=== PATIENT | male | born 1980 | race Caucasian/White ===

== ENCOUNTER 2016-05-15 04:07 | Emergency (ER) | payer SELFPAY ==
[~2016-05-15] VITALS: Ht 162.6 cm; Wt 75.5 kg
[2016-05-15 04:14] VITALS: Ht 162.6 cm; Wt 75.5 kg
[2016-05-15] MEDS ORDERED: SODI126M NASAL (04:41)
[2016-05-15] MEDS ORDERED: ACET500C5 PO (04:41)
--- NOTE | 2016-05-15 04:49 | ERD ---
ER Documentation Chief Complaint Date/Time DATE: 05/15/16 TIME: 04:43 Chief Complaint chest congestion,reported to have flu,took Mucinex at home HPI 35-year-old male complaining of chest pressure since 7 PM last night. Patient describes this as feeling like "elephant is sitting on my chest". He has shortness of breath associated with the pain. Patient reports cough and runny nose 3 days, along with sore throat and left ear pain. Denies fever or chills. Denies abdominal pain, vomiting, or diarrhea. Denies history of asthma. ROS All systems reviewed and are negative except as per history of present illness. Medications Home Meds Active Scripts Sodium Chloride (Saline Nasal Mist) 126 Ml Mist, 2 SPRAY NASAL Q2H Y for NASAL CONGESTION, #1 BOTTLE Prov:ISIDORO BALTAZAR. ROUGH CARPENTER 05/15/16 Acetaminophen* (Tylophen*) 500 Mg Capsule, 1 CAP PO Q6H Y for PAIN AND OR ELEVATED TEMP, #20 CAP Prov:ISIDORO BALTAZAR. ROUGH CARPENTER 05/15/16 Allergies Allergies: Coded Allergies: No Known Allergy (Unverified , 05/15/16) PMhx/Soc Medical and Surgical Hx: pt denies Medical Hx, pt denies Surgical Hx History of Surgery: No Anesthesia Reaction: No Hx Neurological Disorder: No Hx Respiratory Disorders: No Hx Cardiac Disorders: No Hx Psychiatric Problems: No Hx Miscellaneous Medical Probl: No Hx Alcohol Use: Yes (socially) Hx Substance Use: Yes (occassional marijuana use) Hx Tobacco Use: Yes Smoking Status: Light tobacco smoker Physical Exam Vitals Vital Signs Date Time Temp Pulse Resp B/P Pulse Ox O2 Delivery O2 Flow Rate FiO2 05/15/16 04:14 98.7 81 18 132/72 97 Physical Exam General impression: Well-developed, well-nourished. Alert, oriented, in no acute distress Head: Normocephalic, atraumatic. Eyes: PERRL, EOM normal. Conjunctiva not injected. ENT: External canals clear. TM's pearly najera, left TM slightly bulging. Nasal mucosa erythematous and swollen. Oral mucosa are normal. Oropharynx mildly erythematous, no pharyngeal swelling or exudates. Neck: Supple, nontender. No lymphanopathy. No nuchal rigidity. Respiration: Normal respiratory effort. Lungs clear to auscultate bilaterally. No wheezes, rales or rhonchi. Cardiovascular: Regular rate and rhythm. No murmurs or extra heart sounds. Abdomen: Abdomen normal to inspection. Nontender. No masses or organomegaly. Bowel sounds normal. Neuro: Mental status normal, speech normal. Skin: Normal turgor. No rash or lesions. Psych: Normal mood and affect. Procedures/MDM EKG: Normal sinus rhythm, normal axis. No ST segment elevation or depression. No ectopic beats. No QT prolongation. No other EKG abnormalities. EKG read by Dr. Levy. Low suspicion for OK. Patient is afebrile, in no respiratory distress. Lungs are clear to auscultate. I doubt that patient has pneumonia or bronchitis. Likely patient's symptoms are result of viral upper respiratory infection. Low suspicion for aortic dissection, pneumothorax or PE. Patient appears well, stable for discharge and outpatient management. Medical decision making shared with patient and family. Education provided to patient and family. Patient and family expressed understanding of the plan. Medications on discharge: Tylenol, saline nasal spray. Follow-up: Primary care provider in 2-3 days or return to ED if worse. Departure Diagnosis: Primary Impression: URI (upper respiratory infection) URI type: acute nasopharyngitis (common cold) Qualified Code: J00 - Acute nasopharyngitis Condition: Good Patient Instructions: Adult Self-Care for Colds Referrals: [facility] YOU HAVE RECEIVED A MEDICAL SCREENING EXAM AND THE RESULTS INDICATE THAT YOU DO NOT HAVE A CONDITION THAT REQUIRES URGENT TREATMENT IN THE EMERGENCY DEPARTMENT. FURTHER EVALUATION AND TREATMENT OF YOUR CONDITION CAN WAIT UNTIL YOU ARE SEEN IN YOUR DOCTORS OFFICE WITHIN THE NEXT 1-2 DAYS. IT IS YOUR RESPONSIBILITY TO MAKE AN APPOINTMENT FOR [facility]. IF YOU HAVE A PRIMARY DOCTOR --you should call your primary doctor and schedule an appointment IF YOU DO NOT HAVE A PRIMARY DOCTOR YOU CAN CALL OUR PHYSICIAN REFERRAL HOTLINE AT IF YOU CAN NOT AFFORD TO SEE A PHYSICIAN YOU CAN CHOSE FROM THE FOLLOWING [facility] [address] [facility] [address] [facility] [address] [facility] [address] [facility]. [facility] [address] [facility]. [facility] [address] Additional Instructions: Call your primary care doctor TOMORROW for an appointment during the next 2-3 days.See the doctor sooner or return here if your condition worsens before your appointment time. ISIDORO BALTAZAR NP May 15, 2016 04:49
== END 2016-05-15 04:56 | disposition home or self-care (01) ==
LOC: FTE 04:07
DX: J00 Acute nasopharyngitis [common cold] (principal); F17.210 Nicotine dependence, cigarettes, uncomplicated
CPT/HCPCS: 93005; 99283

== ENCOUNTER 2016-07-10 13:01 | Day surgery (SDC) | payer BC ==
[~2016-07-10] VITALS: Ht 162.6 cm; Wt 72.0 kg
[~2016-07-10 13:01] MED LIST: ACET500C5 PO; SODI126M NASAL
[2016-07-10 13:54] VITALS: Ht 162.6 cm; Wt 72.0 kg
[2016-07-10 16:33] VITALS: BP 109/87; PULSE 59; RESP 18
[2016-07-10] MEDS ORDERED: MIDAZOLAM 1 MG/ML 2 ML INJ ONE (17:01)
[2016-07-10] MEDS ORDERED: FENTAnyl 50 MCG/ML VIAL ONE (17:01)
[2016-07-10] MEDS ORDERED: PROPOFOL 20 ML ONE (17:01)
--- NOTE | 2016-07-11 06:09 | GILP ---
DATE OF PROCEDURE: 07/10/2016 PROCEDURE: Esophagogastroduodenoscopy with biopsies. BRIEF HISTORY AND INDICATIONS: The patient with atypical chest pain. PREMEDICATION: Monitored anesthesia care by anesthesiologist. SURGEON: Nate Melo MD INSTRUMENT USED: Olympus panendoscope. TECHNIQUE: After informed consent, with the patient/relatives understanding the procedure, its indic ations, potential risks and complications, including but not limited to: allergic reaction, bleeding , perforation or infection, and after all pertinent questions were answered to the patients satisfac tion, the patient/relatives signed witnessed informed consent. Following this, premedication was administered slowly IV push under careful cardiovascular and respi ratory monitoring with pulse oximetry, automatic blood pressure and functional tester typewriters. Once the sedative effect was achieved the patient was place in the left lateral decubitus, the panen doscope was introduced and advanced under visual control. Careful examination of the upper gastrointestinal tract, both on insertion as well as withdrawal of the instrument disclosed the following findings: ESOPHAGUS: The body of the esophagus showed trachealization of the esophagus with multitude of ring s suggesting the possibility of eosinophilic esophagitis. Biopsies were obtained. The distal esophagus shows erythema and edema of the mucosa of a moderate degree. STOMACH: Upon entrance to the stomach, air was insufflated, the gastric fall distended normally. There is erythema and edema of the mucosa of a moderate degree. Biopsies were obtained to rule out H. pylori infection. PYLORUS: The pylorus appears patent and within normal limits, with no evidence of gastric outlet ob struction. DUODENUM: The duodenal mucosa was carefully examined in the duodenal bulb as well as the second por tion of the duodenum and appears unremarkable with no evidence of duodenitis, ulcer or neoplasm. The instrument was then withdrawn, the patient tolerated the procedure well and was transfer out of the endoscopy suite awake, and in good condition to continue recovery under observation IMPRESSION: 1. Trachealization of the esophagus. Rule out eosinophilic esophagitis, biopsies obtained. 2. Moderate distal esophagitis. 3. Moderate gastritis, rule out Helicobacter pylori infection, biopsies obtained. PLAN: PPI therapy. Pathology will be reviewed as soon as available. Further recommendation will d epend on the patient's clinical course. Thank you very much. Dictated By: NATE MELO MS/NTS Conf#: [id number] DID#: [id number]
== END 2016-07-10 18:56 | disposition home or self-care (01) ==
LOC: GIL 13:01
PROVIDERS: ATTEND Internal Medicine Gastroenterology
DX: K20.8 Other esophagitis (principal); K29.70 Gastritis, unspecified, without bleeding
CPT/HCPCS: 43239; J2250; J3010

== ENCOUNTER → 2018-11-21 | Outpatient (CLI) | payer BC | END | disposition home or self-care (01) | LOC: U/S 08:20 | PROVIDERS: ATTEND Internal Medicine Gastroenterology | DX: R10.9 Unspecified abdominal pain (principal) | CPT/HCPCS: 76700 ==